=== PATIENT | male | born 1940 ===

== ENCOUNTER 2017-11-14 06:23 | Day surgery (SDC) | payer MEDICARE, BC ==
--- NOTE | 2017-11-13 11:38 | HP ---
PREOP HISTORY AND PHYSICAL: DATE OF SURGERY: 11/14/17 [facility] CHIEF COMPLAINT: Numbness and tingling in the right hand. HISTORY OF PRESENT ILLNESS: Mr. Burrell is a 77-year-old man with numbness and tingling in his bilateral hands, worse on the right than on the left. 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 This aggravates his symptoms. He is often awakened at night with numbness in his hands. He also complains of weakness and inability to pit tanner things. He rates his discomfort as 8/10. PAST MEDICAL HISTORY: Hyperlipidemia. PAST SURGICAL HISTORY: Bilateral shoulder surgery. MEDICATIONS: 1. Amlodipine besylate 5 mg p.o. daily. 2. Eliquis 5 mg p.o. daily. 3. One a day vitamin and vitamin C, also vitamin E. ALLERGIES: No known drug allergies. FAMILY HISTORY: Diabetes, hypertension, stroke. SOCIAL HISTORY: He lives with his spouse. 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 He denies ever using tobacco. He occasionally consumes alcohol. REVIEW OF SYSTEMS: His review of systems is positive for fatigue, blurry vision , seasonal allergies. Otherwise, negative for specific cephalic, cardiovascular , respiratory, gastrointestinal, genitourinary, other musculoskeletal, skin, neurologic, endocrine, and hematologic symptoms. PHYSICAL EXAMINATION GENERAL: He is healthy-appearing pleasant male, in minimal distress at rest. VITAL SIGNS: He is 72 inches, pulse is 87, respirations 18, blood pressure 146/ 84, his weight is 209 pounds. HEENT Exam: Unremarkable. He has good range of motion of his neck with minimal pain. Eye movements are concentric. LUNGS: Clear to auscultation. Good inspiratory effort. No wheezing. CARDIAC: Regular rate and rhythm without murmur. PERIPHERAL VASCULAR: He has palpable pulses and no peripheral edema. Neurologically, he is alert and oriented without focal deficits. EXTREMITIES: He has weakness with finger abduction, thenar atrophy more on the left than on the right, decreased pit tanner strength bilateral, positive Tinel's sign on the right wrist at the median nerve. Negative Tinel's sign both elbows , positive Phalen's test on the right, negative on the left. Never conduction study showed carpal tunnel syndrome, severe on the right, mild on the left. IMPRESSION: Right carpal tunnel syndrome, severe. PLAN: Plan is for right carpal tunnel release. This patient will follow up approximately 10 days postop. [id number]/[facility] #: [id number] [facility]ENTERGarrett
[~2017-11-14 06:23] MED LIST: Buffered Lidocaine 0.9% SYRIN* 5 ML/SYR SYRINGE INTRADERM ONE; Famotidine IV* 10 MG/ML 2 ML (20 mg) IV ONE
[2017-11-14] MEDS ORDERED: Famotidine IV* 10 MG/ML 2 ML (20 mg) ONE (06:31)
[2017-11-14] MEDS ORDERED: Lidocaine 1% INJ* 10 MG/ML 30 ML SDV ONE (07:16)
[2017-11-14] MEDS ORDERED: fentaNYL* 50 MCG/ML 2 ML VIAL (100 MCG VIAL) ONE (07:31)
[2017-11-14] MEDS ORDERED: Midazolam* 1 MG/ML 5 ML VIAL (5 MG) ONE (07:31)
[2017-11-14] MEDS ORDERED: Ondansetron INJ* 2 MG/ML VIAL ONE (07:37)
[2017-11-14] MEDS ORDERED: Lidocaine 2% PF * 5 ML VIAL ONE (07:37)
[2017-11-14] MEDS ORDERED: Propofol* 10 MG/ML 20 ML BTL IV PUSH ONE (07:37)
[2017-11-14] MEDS ORDERED: Ketorolac INJ* 30 MG/ML 1 ML VIAL ONE (07:37)
[2017-11-14] MEDS ORDERED: Acetaminophen TAB* 325 MG PO PRN (08:26)
[2017-11-14] MEDS ORDERED: Naloxone* 0.4 MG/ML 1 ML VIAL IV PRN (08:26)
[2017-11-14 08:35] VITALS: BP 114/78
--- NOTE | 2017-11-15 02:43 | OP ---
DATE OF OPERATION: 11/14/17 [facility] DATE OF : 42 SURGEON: Pili Sanon MD PAINT BRUSH MAKER: BOB Allan ANESTHESIA: Local MAC. PRE-OP DIAGNOSIS: Right carpal tunnel syndrome. POST-OP DIAGNOSIS: Right carpal tunnel syndrome. OPERATIVE PROCEDURE: Right carpal tunnel release. INDICATION FOR PROCEDURE: Shaji is a 77-year-old man with numbness and tingling in the median nerve distribution of his right hand. He presents for right carpal tunnel release. ESTIMATED BLOOD LOSS: Zero. TOURNIQUET TIME: About 8 minutes. DESCRIPTION OF PROCEDURE: The patient was brought to the operating room and was given a sedation anesthetic and local infiltration of 10 cc of 1% plain lidocaine in the palm of his right hand. The skin of his right hand and forearm was prepped and draped in the usual sterile fashion. The hand and forearm were exsanguinated and tourniquet elevated to 250 mmHg. A longitudinal incision was made in the palm in line with the ring finger. We dissected sharply through the subcutaneous tissue down to the transverse carpal ligament, which was very thickened. The ligament was incised sharply with the knife and then more proximally with the scissors. The nerve was dissected free from the surrounding tenosynovitis. There was an area of moderate compression at the midportion of the ligament. The wound was irrigated and the skin edges were reapproximated with 4-0 nylon suture. The wound was dressed with Xeroform, 4x4 , Webril, and an MELISSA wrap. The patient tolerated the procedure well and was brought to the recovery room in good condition. [id number]/[facility] #: [id number] [facility]
== END 2017-11-14 08:30 | disposition home or self-care (01) ==
LOC: OREAST 06:23
PROVIDERS: ATTEND Orthopaedic Surgery
DX: G56.01 Carpal tunnel syndrome, right upper limb (principal); E78.5 Hyperlipidemia, unspecified; I48.91 Unspecified atrial fibrillation; Z79.01 Long term (current) use of anticoagulants
CPT/HCPCS: J1885; J2250; J2405; J2704; J3010

== ENCOUNTER 2017-12-01 08:28 | Day surgery (SDC) | payer MEDICARE, BC ==
--- NOTE | 2017-11-23 13:41 | HP ---
PREOPERATIVE HISTORY AND PHYSICAL: DATE OF SURGERY/ADMISSION: 12/01/17 DATE OF OFFICE VISIT/ENCOUNTER: 11/23/17 ATTENDING SURGEON: Pili Sanon MD* (dictated by BOB Allan). PROCEDURE: Left wrist carpal tunnel release. CHIEF COMPLAINT: Numbness and tingling in the left hand. HISTORY OF PRESENT ILLNESS: This is a 77-year-old male with numbness and tingling in his left hand. This has been ongoing for some time. 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 He is awakened at night with numbness in his hand. He also complains of weakness and inability to rehanger things. He recently underwent a right carpal tunnel release with Dr. Sanon and did quite well with that. He is interested in pursuing a left wrist carpal tunnel release. PAST MEDICAL HISTORY: Hyperlipidemia. PAST SURGICAL HISTORY: 1. Bilateral shoulder surgeries. 2. Bilateral cataract removal. 3. Right carpal tunnel release. CURRENT MEDICATIONS: 1. Amlodipine besylate 5 mg daily. 2. Eliquis 5 mg daily. 3. Once a day vitamin and vitamin C and vitamin E daily. ALLERGIES: No known drug allergies. FAMILY MEDICAL HISTORY: Diabetes, hypertension, stroke. SOCIAL HISTORY: The patient lives with his spouse. 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 He does not smoke cigarettes. He denies recreational drug use. He drinks alcohol on occasion. REVIEW OF SYSTEMS: Positive for fatigue, blurry vision, seasonal allergies. Otherwise, negative for specific cephalic, cardiovascular, respiratory, GI, , other musculoskeletal, skin, neurologic, endocrine, and hematologic symptoms. Infectious Disease is negative for MRSA, hepatitis C, and HIV. PHYSICAL EXAMINATION GENERAL: Well-developed, well-nourished 77-year-old male in no acute distress. VITAL SIGNS: Height 6 feet tall, weight 210 pounds. Blood pressure 128/76, pulse rate 87. HEENT: Normocephalic and atraumatic. Pupils are equal, round, and reactive to light and accommodation. Extraocular movements are intact. NECK: Supple. No palpable lymph nodes. Throat is clear. PULMONARY: Lungs are clear to auscultation bilaterally. No wheezes, rales, or rhonchi. CARDIOVASCULAR: Regular rate and rhythm. S1 and S2. No murmurs, rubs, or gallops. No edema. ABDOMEN: Positive bowel sounds. Soft, nontender. NEUROLOGIC: Alert and oriented x3. Cranial nerves II through XII are intact. Sensation is intact to light touch. MUSCULOSKELETAL: On exam of his left hand, there is mild thenar atrophy and decreased rehanger strength on the left. Positive Tinel sign on the left at the median nerve. Negative Phalen's test. Sensation is intact to light touch throughout the hand. IMAGING STUDIES: EMG nerve condition studies showed mild carpal tunnel syndrome on the left. IMPRESSION: Left carpal tunnel syndrome. PLAN: The patient is scheduled to undergo a left wrist carpal tunnel release with Dr. Sanon on 12/01/17. He will return to the office 10 days postop for followup and suture removal. A prescription for tramadol was e-scribed to the patient's pharmacy for postoperative pain management. BOB ALLAN [id number]/[facility] #: [id number] PAULIE
[~2017-12-01 08:28] MED LIST changes: -Famotidine IV* 10 MG/ML 2 ML (20 mg) IV ONE
[2017-12-01] MEDS ORDERED: Levalbuterol 0.63MG/3ML NEB* UNIT OF USE INH PRN (09:17)
[2017-12-01] MEDS ORDERED: Ondansetron INJ* 2 MG/ML VIAL IV PRN (09:17)
[2017-12-01] MEDS ORDERED: Naloxone* 0.4 MG/ML 1 ML VIAL IV PRN (09:17)
[2017-12-01] MEDS ORDERED: Acetaminophen TAB* 325 MG PO PRN (09:17)
[2017-12-01] MEDS ORDERED: Lidocaine 1% INJ* 10 MG/ML 30 ML SDV ONE (09:40)
[2017-12-01] MEDS ORDERED: Midazolam* 1 MG/ML 2 ML VIAL (2 MG) ONE (10:13)
[2017-12-01] MEDS ORDERED: fentaNYL* 50 MCG/ML 2 ML VIAL (100 MCG VIAL) ONE (10:13)
[2017-12-01] MEDS ORDERED: Propofol* 10 MG/ML 20 ML BTL IV PUSH ONE (11:00)
[2017-12-01] MEDS ORDERED: Ketorolac INJ* 30 MG/ML 1 ML VIAL ONE (11:00)
[2017-12-01] MEDS ORDERED: Lidocaine 2% PF * 5 ML VIAL ONE (11:00)
[2017-12-01 11:44] VITALS: BP 137/73
--- NOTE | 2017-12-02 03:22 | OP ---
DATE OF OPERATION: 12/01/17 [facility] DATE OF : 42 SURGEON: Dr. Sanon. CONING MACHINE OPERATOR: BOB Allan ANESTHESIA: Local MAC. PRE-OP DIAGNOSIS: Left carpal tunnel syndrome. POST-OP DIAGNOSIS: Left carpal tunnel syndrome. PROCEDURE: Left carpal tunnel release. ESTIMATED BLOOD LOSS: Zero. TOURNIQUET TIME: Approximately 10 minutes. INDICATIONS FOR PROCEDURE: Shaji is a 77-year-old man with numbness and tingling in the median nerve distribution of his left hand. He has had previous right carpal tunnel release with good result and presents for a left carpal tunnel release now. DESCRIPTION OF PROCEDURE: The patient was brought to the operating room, was given a sedation anesthetic and local infiltration of 10 cc of 1% plain lidocaine in the palm of his left hand. The skin of his left hand and forearm was prepped and draped in the usual sterile fashion. The hand and forearm were exsanguinated and tourniquet elevated to 250 mmHg. A longitudinal incision was made in the palm in line with the ring finger. We dissected sharply through the subcutaneous tissue down to the transverse carpal ligament. The ligament was divided sharply with a knife and then more proximally with the scissors. The nerve was dissected free from the surrounding tissue, and there was an area of moderate compression at the mid portion of the ligament. The wound was irrigated, and the skin edges reapproximated with 4-0 nylon suture. The wound was dressed with Xeroform, 4x4, Webril, and an Gennaro wrap. The patient tolerated the procedure well and was brought to the recovery room in good condition. [id number]/[facility] #: [id number] [facility]ITALGarrett
== END 2017-12-01 11:48 | disposition home or self-care (01) ==
LOC: OREAST 08:28
PROVIDERS: ATTEND Orthopaedic Surgery
DX: G56.02 Carpal tunnel syndrome, left upper limb (principal); E78.5 Hyperlipidemia, unspecified; Z79.01 Long term (current) use of anticoagulants; J30.2 Other seasonal allergic rhinitis; I48.91 Unspecified atrial fibrillation
CPT/HCPCS: J1885; J2250; J2704; J3010